=== PATIENT | female | born 1945 | race Caucasian/White ===

== ENCOUNTER → 2017-04-17 | Outpatient (CLI) | payer MEDICARE, MEDICAID ==
[~2017-04-17] MED LIST: ALBU2.5V NPPB; ALBU8.5H3 INH; ALPR0.254 PO; ASPI-621 PO; BUDE10.2 INH; CEFD300C37 PO; DOXY100T PO; FURO40TA6 PO; GUAI200T3 PO; ISOS30TA8 PO; LISI5TAB7 PO; METO-93 PO; OMEP-110 PO; ONDA4TAB7 PO; POTA20PA8 PO; POTA20TA6 PO; PRED5TAB PO; SIMV20TA PO; TIOT18CA INH
== END | disposition home or self-care (01) ==
LOC: CFH 14:17
PROVIDERS: ATTEND Internal Medicine Cardiovascular Disease
DX: I08.3 Combined rheumatic disorders of mitral, aortic and tricuspid valves (principal); I37.1 Nonrheumatic pulmonary valve insufficiency; I51.7 Cardiomegaly
CPT/HCPCS: 93306

== ENCOUNTER 2018-05-26 10:40 | Inpatient (IN) | payer MEDICARE, MEDICAID ==
[~2018-05-26] VITALS: Ht 165.6 cm; Wt 62.0 kg
[~2018-05-26 10:40] MED LIST changes: -ALBU8.5H3 INH; +ALBU8.5H8 INH; +POTA20PA25 PO; -POTA20PA8 PO
[2018-05-26] MEDS ORDERED: PANTOPRAZOLE 80 MG in SODIUM CHLORIDE 0.9% 100 ML IV SCH ×2 (11:13→14:30)
[2018-05-26] MEDS ORDERED: PANTOPRAZOLE 80 MG in SODIUM CHLORIDE 0.9% 50 ML IVPB ONE (11:13)
[2018-05-26] MEDS ORDERED: ONDANSETRON ODT 4 MG ONE (11:27)
[2018-05-26] MEDS ORDERED: MORPHINE SULFATE 4 MG/ML, 1ML ONE (11:27)
[2018-05-26] MEDS ORDERED: ONDANSETRON 2MG/ML, 2ML IVPush ONE (11:30)
[2018-05-26] MEDS ORDERED: SODIUM CHLORIDE FLUSH 10ML SYR IVF ONE (11:30)
[2018-05-26] MEDS ORDERED: MORPHINE SULFATE 4 MG/ML, 1ML IVPush PRN (11:30)
[2018-05-26] MEDS ORDERED: SODIUM CHLORIDE 0.9% 1,000ML IVBOLUS ONE ×2 (11:30→13:30)
[2018-05-26 11:41] LABS: MEAN CORPUSCULAR HEMOGLOBIN 28.9 pg (27.0-34.8); MEAN CORPUSCULAR HGB CONC 32.6 g/dL (32.4-35.8); MEAN CORPUSCULAR VOLUME 88.6 fL (80-100); MEAN PLATELET VOLUME 8.4 fL (7.4-10.4); PLATELET COUNT 289 x10^3/uL (130-400); RED BLOOD COUNT 3.67 x10^6/uL (3.82-5.3); RED CELL DISTRIBUTION WIDTH 14.7 % (9.6-15.2)
[2018-05-26 11:51] LABS: INTERNATIONAL NORMALIZED RATIO 1.11 (0.93-1.1); PROTHROMBIN TIME 11.4 Seconds (9.6-11.5)
[2018-05-26 11:55] LABS: ALBUMIN 2.5 g/dL (3.4-5.0); ANION GAP 6 mmol/L (5-15); CALCIUM 7.4 mg/dL (8.5-10.1); CHLORIDE 108 mmol/L (98-107)
[2018-05-26 11:58] LABS: MD YES
[2018-05-26 11:59] LABS: ALANINE AMINOTRANSFERASE 19 U/L (12-78); ALKALINE PHOSPHATASE 80 U/L (45-117); BANDS%(MANUAL) 3 % (0-7); BASOS% (MANUAL) 1 % (0-1); BILIRUBIN,TOTAL 0.5 mg/dL (0.2-1.0); CREATININE 0.94 mg/dL (0.55-1.02); EOS% (MANUAL) 1 % (1-7); LYMPHS% (MANUAL) 13 % (22-44); MONOS% (MANUAL) 3 % (2-9); SEGS% (MANUAL) 79 % (42-75); TOTAL PROTEIN 6.6 g/dL (6.4-8.2)
[2018-05-26 12:00] LABS: <PLATELET ESTIMATE> ADEQUATE; <PLT MORPHOLOGY> NORMAL PLT MORPH; <RBC MORPHOLOGY> NORMAL
[2018-05-26] MEDS ORDERED: AMPICILLIN/SULBACTAM 3 GM in SODIUM CHLORIDE 0.9% 100 ML IV ONE (13:00)
[2018-05-26] MEDS ORDERED: PROCHLORPERAZINE 5 MG/ML, 2ML ONE (13:28)
[2018-05-26] MEDS ORDERED: PROCHLORPERAZINE 5 MG/ML, 2ML IVPush ONE (13:30)
[2018-05-26] MEDS ORDERED: HYDROmorphone 1 MG/ML, 1ML IV ONE (13:30)
[2018-05-26] MEDS ORDERED: HYDROmorphone 2 MG/ML, 1ML ONE (13:44)
[2018-05-26] MEDS ORDERED: OXYcodone IR 5MG TABLET PO PRN (14:30)
[2018-05-26] MEDS ORDERED: TEMPLATE NON-FORMULARY MED. (Albuterol Sulfate (Proair Hfa) 1 PUFF) INH PRN (14:30)
[2018-05-26] MEDS ORDERED: POLYETHYLENE GLYCOL 17 GM PACKET PO PRN (14:30)
[2018-05-26] MEDS ORDERED: ACETAMINOPHEN 325 MG TABLET PO PRN (14:30)
[2018-05-26] MEDS ORDERED: ALBUTEROL SULFATE 2.5 MG/3 ML NPPB PRN (14:30)
[2018-05-26] MEDS ORDERED: ONDANSETRON ODT 4 MG PO PRN (14:30)
[2018-05-26 16:29] LABS: HEMOGLOBIN A1C 6.1 % (4.2-6.3)
[2018-05-26] MEDS: AMPICILLIN/SULBACTAM 3 GM in SODIUM CHLORIDE 0.9% 100 ML IV SCH (19:49)
[2018-05-26] MEDS: SIMVASTATIN 20 MG TABLET PO SCH (20:55)
[2018-05-26] MEDS: PANTOPRAZOLE 80 MG in SODIUM CHLORIDE 0.9% 100 ML IV SCH (21:14)
[2018-05-27] MEDS: AMPICILLIN/SULBACTAM 3 GM in SODIUM CHLORIDE 0.9% 100 ML IV SCH ×4 (01:16→21:03)
[2018-05-27 04:00] VITALS: BP 132/51
[2018-05-27 04:27] LABS: BASOPHILS # (AUTO) 0.03 x10^3/uL (0-0.1); BASOPHILS % (AUTO) 0 % (0-1); EOSINOPHILS % (AUTO) 0 % (1-7); LYMPHOCYTES # (AUTO) 1.45 x10^3/uL (1-3.4); LYMPHOCYTES % (AUTO) 18 % (22-44); MD NO; MEAN CORPUSCULAR HEMOGLOBIN 29.4 pg (27.0-34.8); MEAN CORPUSCULAR HGB CONC 32.5 g/dL (32.4-35.8); MEAN CORPUSCULAR VOLUME 90.2 fL (80-100); MEAN PLATELET VOLUME 7.9 fL (7.4-10.4); MONOCYTES # (AUTO) 0.96 x10^3/uL (0.2-0.8); MONOCYTES % (AUTO) 12 % (2-9); NEUTROPHILS # (AUTO) 5.63 x10^3/uL (1.8-6.8); NEUTROPHILS % (AUTO) 70 % (42-75); PLATELET COUNT 241 x10^3/uL (130-400); RED CELL DISTRIBUTION WIDTH 15.3 % (9.6-15.2)
[2018-05-27 04:34] LABS: ALBUMIN 2.2 g/dL (3.4-5.0); CALCIUM 7.4 mg/dL (8.5-10.1); CHLORIDE 111 mmol/L (98-107)
[2018-05-27 04:39] LABS: ALANINE AMINOTRANSFERASE 16 U/L (12-78); ALKALINE PHOSPHATASE 63 U/L (45-117); ANION GAP 5 mmol/L (5-15); BILIRUBIN,TOTAL 0.3 mg/dL (0.2-1.0); CREATININE 0.93 mg/dL (0.55-1.02); TOTAL PROTEIN 5.8 g/dL (6.4-8.2)
[2018-05-27] MEDS: PANTOPRAZOLE 80 MG in SODIUM CHLORIDE 0.9% 100 ML IV SCH (06:25)
[2018-05-27] MEDS ORDERED: PROPOFOL 10 MG/ML, 20ML ONE (07:34)
[2018-05-27] MEDS ORDERED: PROPOFOL 10 MG/ML, 50ML ONE (07:34)
[2018-05-27] MEDS: SENNA/DOCUSATE TABLET PO SCH (08:09)
[2018-05-27] MEDS: FLUTICASONE/VILANTEROL 200-25MCG/INH INH SCH (08:17)
[2018-05-27] MEDS: ALBUTEROL SULFATE 2.5 MG/3 ML NPPB SCH ×3 (13:35→22:00)
[2018-05-27 15:05] VITALS: BP 131/71
[2018-05-27] MEDS ORDERED: ALBUTEROL SULFATE 2.5 MG/3 ML NPPB PRN (16:00)
[2018-05-27] MEDS ORDERED: ALBUTEROL SULFATE 2.5 MG/3 ML NPPB SCH (16:00)
[2018-05-27 19:45] VITALS: BP 144/65
[2018-05-27] MEDS ORDERED: FUROSEMIDE 40 MG/4 ML IV ONE (20:30)
[2018-05-27] MEDS: SIMVASTATIN 20 MG TABLET PO SCH (21:00)
[2018-05-28 02:49] VITALS: BP 137/67
[2018-05-28] MEDS: AMPICILLIN/SULBACTAM 3 GM in SODIUM CHLORIDE 0.9% 100 ML IV SCH ×4 (02:52→22:29)
[2018-05-28 04:48] LABS: BASOPHILS # (AUTO) 0.05 x10^3/uL (0-0.1); BASOPHILS % (AUTO) 1 % (0-1); EOSINOPHILS # (AUTO) 0.22 x10^3/uL (0-0.4); EOSINOPHILS % (AUTO) 3 % (1-7); LYMPHOCYTES # (AUTO) 1.72 x10^3/uL (1-3.4); LYMPHOCYTES % (AUTO) 23 % (22-44); MD NO; MEAN CORPUSCULAR HEMOGLOBIN 29.6 pg (27.0-34.8); MEAN CORPUSCULAR HGB CONC 33.1 g/dL (32.4-35.8); MEAN CORPUSCULAR VOLUME 89.3 fL (80-100); MEAN PLATELET VOLUME 8.6 fL (7.4-10.4); MONOCYTES # (AUTO) 0.81 x10^3/uL (0.2-0.8); MONOCYTES % (AUTO) 11 % (2-9); NEUTROPHILS # (AUTO) 4.83 x10^3/uL (1.8-6.8); NEUTROPHILS % (AUTO) 63 % (42-75); PLATELET COUNT 239 x10^3/uL (130-400); RED BLOOD COUNT 2.92 x10^6/uL (3.82-5.3); RED CELL DISTRIBUTION WIDTH 14.7 % (9.6-15.2)
[2018-05-28] MEDS: ALBUTEROL SULFATE 2.5 MG/3 ML NPPB SCH ×5 (06:00→22:00)
[2018-05-28 07:42] VITALS: BP 145/70
[2018-05-28] MEDS: OMEPRAZOLE 20 MG CAPSULE.DR PO SCH (08:15)
[2018-05-28] MEDS: SENNA/DOCUSATE TABLET PO SCH (08:16)
[2018-05-28] MEDS ORDERED: FUROSEMIDE 40 MG/4 ML IV SCH (09:00)
[2018-05-28] MEDS: FLUTICASONE/VILANTEROL 200-25MCG/INH INH SCH (10:34)
[2018-05-28 12:50] VITALS: BP 143/66
[2018-05-28 19:54] VITALS: BP 155/69
[2018-05-28] MEDS: BENZONATATE 100 MG CAPSULE PO SCH (22:30)
[2018-05-28] MEDS: SIMVASTATIN 20 MG TABLET PO SCH (22:30)
[2018-05-28] MEDS: HYDROcodone/CHLORPHENIR ORAL SUSP PO PRN (23:57)
[2018-05-29 04:00] VITALS: BP 134/59
[2018-05-29 04:27] LABS: BASOPHILS # (AUTO) 0.09 x10^3/uL (0-0.1); BASOPHILS % (AUTO) 1 % (0-1); EOSINOPHILS # (AUTO) 0.41 x10^3/uL (0-0.4); EOSINOPHILS % (AUTO) 6 % (1-7); LYMPHOCYTES # (AUTO) 1.63 x10^3/uL (1-3.4); LYMPHOCYTES % (AUTO) 24 % (22-44); MD NO; MEAN CORPUSCULAR HEMOGLOBIN 29.5 pg (27.0-34.8); MEAN CORPUSCULAR HGB CONC 33.5 g/dL (32.4-35.8); MONOCYTES # (AUTO) 0.83 x10^3/uL (0.2-0.8); MONOCYTES % (AUTO) 12 % (2-9); NEUTROPHILS # (AUTO) 3.94 x10^3/uL (1.8-6.8); NEUTROPHILS % (AUTO) 57 % (42-75); PLATELET COUNT 230 x10^3/uL (130-400); RED BLOOD COUNT 2.82 x10^6/uL (3.82-5.3); RED CELL DISTRIBUTION WIDTH 14.9 % (9.6-15.2)
[2018-05-29 04:37] LABS: ANION GAP 2 mmol/L (5-15); CALCIUM 7.2 mg/dL (8.5-10.1); CHLORIDE 103 mmol/L (98-107)
[2018-05-29 04:38] LABS: CREATININE 0.82 mg/dL (0.55-1.02)
[2018-05-29] MEDS: AMPICILLIN/SULBACTAM 3 GM in SODIUM CHLORIDE 0.9% 100 ML IV SCH ×2 (05:00→10:26)
[2018-05-29] MEDS: ALBUTEROL SULFATE 2.5 MG/3 ML NPPB SCH ×4 (06:00→18:20)
[2018-05-29 07:19] VITALS: BP 137/67
[2018-05-29] MEDS: OMEPRAZOLE 20 MG CAPSULE.DR PO SCH (08:11)
[2018-05-29] MEDS: BENZONATATE 100 MG CAPSULE PO SCH ×2 (09:19→16:41)
[2018-05-29] MEDS: SENNA/DOCUSATE TABLET PO SCH (09:19)
[2018-05-29] MEDS: FLUTICASONE/VILANTEROL 200-25MCG/INH INH SCH (09:21)
[2018-05-29] MEDS ORDERED: LISINOPRIL 5 MG TABLET PO SCH (11:30)
[2018-05-29] MEDS ORDERED: ISOSORBIDE MONONITRATE ER 30 MG TABLET PO SCH (11:30)
[2018-05-29] MEDS ORDERED: AMOXICILLIN/CLAV 875-125MG TABLET PO SCH (11:30)
[2018-05-29] MEDS ORDERED: ENOXAPARIN 40 MG/0.4 ML SQ SCH (11:30)
[2018-05-29] MEDS: HYDROcodone/CHLORPHENIR ORAL SUSP PO PRN ×2 (12:08→16:41)
[2018-05-29] MEDS: GUAIFENESIN 200 MG TABLET PO SCH ×2 (12:09→16:41)
[2018-05-29 12:27] VITALS: BP 117/61
[2018-05-29] MEDS ORDERED: DOXY100T51 PO (13:41)
[2018-05-29] MEDS ORDERED: TIOT18CA INH (13:41)
[2018-05-29] MEDS ORDERED: AMOX1TAB64 PO (13:41)
[2018-05-30] MEDS ORDERED: ASPIRIN 81 MG TABLET EC PO SCH (06:00)
[2018-05-30] MEDS ORDERED: METOPROLOL SUCCINATE 50 MG TAB.ER.24H PO SCH (06:00)
== END 2018-05-29 19:55 | disposition home or self-care (01) | DRG 871 ==
LOC: ED 12:19 → EDIP 13:10 → CCU 15:17 → 3NW 05-27 14:05
PROVIDERS: ADMIT Internal Medicine; ATTEND Internal Medicine
PROC: 0DB68ZX Excision of Stomach, Via Natural or Artificial Opening Endoscopic, Diagnostic (ICD-10-PCS; principal; 2018-05-27 07:30)
DX: A41.9 Sepsis, unspecified organism (principal); J96.21 Acute and chronic respiratory failure with hypoxia; J69.0 Pneumonitis due to inhalation of food and vomit; K29.61 Other gastritis with bleeding; D62 Acute posthemorrhagic anemia; K76.6 Portal hypertension; K21.9 Gastro-esophageal reflux disease without esophagitis; F41.9 Anxiety disorder, unspecified; G89.29 Other chronic pain; I11.0 Hypertensive heart disease with heart failure; I27.20 Pulmonary hypertension, unspecified; I50.9 Heart failure, unspecified; J44.9 Chronic obstructive pulmonary disease, unspecified; Z99.81 Dependence on supplemental oxygen; Z88.8 Allergy status to other drugs, medicaments and biological substances
CPT/HCPCS: 36415; 71045; 74021; 80048; 80053; 83036; 83605; 83690; 85025; 85610; 85730; 86677; 86850; 86900; 87040; 87070; 87081; 87205; 88305; 93005; 94640; 96361; 96365; 96366; 96375; J0295; J1170; J1940; J2405; J2704; J7613; C9113; J0780; J7030